=== PATIENT | male | born 1960 | race Two or more races ===

== ENCOUNTER 2019-06-01 13:13 | Inpatient (IN) | payer SELFPAY ==
[2019-06-01] MEDS ORDERED: Ketorolac Tromethamine 30 MG/ML VIAL ONE (13:49)
[2019-06-01 14:14] LABS: #Eosinphils 0.1 thou/uL (0.0-0.7); #Lymphocytes 1.3 thou/uL (1.20-3.40); #Monocytes 0.4 thou/uL (0.11-0.59); #Neutrophils 6.3 thou/uL (1.40-6.50); %Basophils 0.2 % (0.0-1.0); %Eosinophils 1.3 % (0.0-10.0); %Lymphocytes 15.7 % (21.0-51.0); %Monocytes 5.4 % (0.0-10.0); %Neutrophils 77.5 % (42.0-75.0); Mean Corpuscular HGB CONC 33.6 g/dL (32.0-36.0); Mean Corpuscular Hemoglobin 33.3 pg (27.0-31.0); Mean Corpuscular Volume 99.3 fL (78.0-98.0); Mean Platelet Volume 6.6 fL (7.4-10.4); Platelet Count 342 thou/uL (130-400); RBC Distribution Width 12.8 % (11.5-14.5); White Blood Cell (WBC) Count 8.1 thou/uL (4.8-10.8)
[2019-06-01 14:33] LABS: ALT (SGPT) 11 U/L (8-55); AST (SGOT) 17 U/L (5-34); Albumin 4.5 g/dL (3.5-5.0); Alkaline Phosphatase 92 U/L (40-150); Anion Gap 14 mmol/L (10-20); BUN (Urea Nitrogen) 11 mg/dL (8.4-25.7); Bilirubin, Total 0.5 mg/dL (0.2-1.2); Calc. Creatinine Clearance 0 mL/min (70-130); Calcium 9.9 mg/dL (7.8-10.44); Carbon Dioxide 23 mmol/L (22-29); Chloride 102 mmol/L (98-107); Estimated GFR-MDRD Greater than 90; Globulin 2.7 g/dL (2.4-3.5); Glucose 77 mg/dL (70-105); Potassium 4.1 mmol/L (3.5-5.1); Protein, Total 7.2 g/dL (6.0-8.3); Sodium 135 mmol/L (136-145)
[2019-06-01] MEDS ORDERED: Heparin 1,000 UNITS/ML VIAL ONE (15:00)
[2019-06-01] MEDS ORDERED: Tobramycin Sulfate 1.2 GM VIAL ONE (15:25)
[2019-06-01] MEDS ORDERED: Fentanyl 100 MCG/2 ML VIAL ONE ×3 (16:21→19:23)
[2019-06-01] MEDS ORDERED: Midazolam HCl 2 mg/2 ml Vial ONE (16:21)
[2019-06-01] MEDS ORDERED: Rocuronium Bromide 10 MG/ML (10ML VIAL) ONE (16:48)
[2019-06-01] MEDS ORDERED: Ondansetron PF 4 MG/2 ML Vial ONE (16:48)
[2019-06-01] MEDS ORDERED: Glycopyrrolate 0.2 MG/ML 5 ML SYRINGE ONE (16:48)
[2019-06-01] MEDS ORDERED: PHENYLEPHRINE-NS 100 MCG/ML 10 ML SYRINGE ONE (16:48)
[2019-06-01] MEDS ORDERED: PROPOFOL 200 MG/20 ML VIAL ONE (16:48)
[2019-06-01] MEDS ORDERED: Lidocaine 1% PF 5 ML VIAL ONE (16:48)
[2019-06-01] MEDS ORDERED: Dexamethasone 20 MG/5 ML VIAL ONE (16:48)
[2019-06-01] MEDS ORDERED: HYDROmorphone 2 MG/ML VIAL SLOW IVP PRN (18:42)
[2019-06-01] MEDS ORDERED: Promethazine HCl 25 MG/ML VIAL SLOW IVP PRN (18:42)
[2019-06-01] MEDS ORDERED: Meperidine HCl/PF 25 MG/ML VIAL SLOW IVP PRN (18:42)
[2019-06-01] MEDS ORDERED: Promethazine HCl 25 MG/ML VIAL IM PRN (18:42)
[2019-06-01] MEDS ORDERED: Bisacodyl 10 MG SUPP PR PRN (19:38)
[2019-06-01] MEDS ORDERED: traMADol HCl 50 MG TAB PO PRN ×2 (19:38)
[2019-06-01] MEDS ORDERED: Fentanyl 100 MCG/2 ML VIAL SLOW IVP PRN (19:38)
[2019-06-01] MEDS ORDERED: Acetaminophen 325 MG TAB PO PRN (19:38)
[2019-06-01] MEDS ORDERED: Morphine 2 MG/ML SYRINGE IVP PRN (19:38)
[2019-06-01] MEDS ORDERED: Morphine 4 MG/ML VIAL SLOW IVP PRN (19:38)
[2019-06-01] MEDS ORDERED: Milk Of Magnesia 30 ML UDCUP PO PRN (19:38)
[2019-06-01] MEDS ORDERED: Ondansetron PF 4 MG/2 ML Vial IV PRN (19:38)
[2019-06-01] MEDS: Sodium Chloride 0.9% 100 ML IV SCH (20:05)
[2019-06-01] MEDS: HYDROcodone/Acetaminophen 5/325 mg Tablet PO PRN (21:18)
[2019-06-01] MEDS: Ketorolac Tromethamine 30 MG/ML VIAL IVP SCH (21:21)
[2019-06-01 21:27] VITALS: BMI 20.5
[2019-06-01] MEDS ORDERED: TETANUS AND DIPHTHERIA TOX/PF 0.5 ML DISP.SYRIN IM SCH (22:00)
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
[2019-06-02] MEDS: HYDROcodone/Acetaminophen 5/325 mg Tablet PO PRN ×4 (01:32→21:50)
[2019-06-02] MEDS: Ketorolac Tromethamine 30 MG/ML VIAL IVP SCH (01:34)
[2019-06-02] MEDS: Vancomycin HCl 1 GM in Premix Bag 1 BAG IVPB SCH ×2 (06:23→17:49)
[2019-06-02 06:46] LABS: #Lymphocytes 1.2 thou/uL (1.20-3.40); #Monocytes 0.4 thou/uL (0.11-0.59); #Neutrophils 5.7 thou/uL (1.40-6.50); %Basophils 0.1 % (0.0-1.0); %Eosinophils 0.4 % (0.0-10.0); %Lymphocytes 15.7 % (21.0-51.0); %Monocytes 5.7 % (0.0-10.0); %Neutrophils 78.1 % (42.0-75.0); Hemoglobin 12.4 g/dL (14.0-18.0); Mean Corpuscular HGB CONC 33.7 g/dL (32.0-36.0); Mean Corpuscular Hemoglobin 33.5 pg (27.0-31.0); Mean Corpuscular Volume 99.4 fL (78.0-98.0); Platelet Count 321 thou/uL (130-400); RBC Distribution Width 12.8 % (11.5-14.5); Red Blood Cell (RBC) Count 3.71 mill/uL (4.70-6.10); White Blood Cell (WBC) Count 7.4 thou/uL (4.8-10.8)
--- NOTE | 2019-06-02 11:44 | SPC ---
Ultrasound and Fluoroscopic guided left upper extremity single lumenPICC placement: 01/27/2019 HISTORY: Need for central vascular access. FINDINGS: Informed consent obtained prior to the procedure. Left antecubital fossa prepped and draped in normal sterile fashion. Skin overlying thebrachial vein anesthetized with 1% buffered lidocaine. With direct sonographic guid ance, vascular access is obtained via the brachial vein and an 0.018in wire was advanced to the cavoatrial junction. Intravascular length is calculated at 45 cm and of the PICC is cut accordingly. Needle is removed and replaced with a peel-away sheath. The PICC was advanced over the wire. Wire and peel-away sheath were removed. The tip of the catheter overlies the cavoatrial junction. The port flushes well and the catheter is ready for use. Exposure data: 0 minutes of fluoroscopic time 36 mGy per centimeter squared IMPRESSION: Successful ultrasound guided placement of a left upper extremity PICC.
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
[2019-06-02] MEDS: Docusate 100 MG CAP PO SCH (16:23)
[2019-06-02] MEDS: cefTRIAXone\\ROCEPHIN 2 GM in Sodium Chloride 0.9% 100 ML IVPB SCH (20:07)
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
[2019-06-03] MEDS: HYDROcodone/Acetaminophen 5/325 mg Tablet PO PRN ×3 (04:53→19:18)
[2019-06-03 05:16] LABS: Vancomycin, Trough 8.2 ug/mL
[2019-06-03] MEDS: Vancomycin HCl 1 GM in Premix Bag 1 BAG IVPB SCH ×3 (05:51→22:08)
--- NOTE | 2019-06-03 12:17 | CON ---
DATE OF CONSULTATION: 06/03/2019 HISTORY OF PRESENT ILLNESS: Mr. Wilhelm is a 59-year-old male, status post I and D of his right shoulder. The patient is currently resting comfortably in bed. The pain is clinically improved. He is otherwise without acute complaints. The dressing has been changed without any significant drainage. PHYSICAL EXAMINATION: VITAL SIGNS: Temperature 98.1, heart rate 80, respirations 18, O2 saturation 100%, blood pressure 133/87. GENERAL: Alert and oriented male, in no acute distress. EXTREMITIES: Right upper extremity is neurovascularly intact distally. He has clean dressing intact. LABORATORY DATA: Microbiology shows no positive cultures from soft tissue or swabs. IMPRESSION: Status post right shoulder open reduction internal fixation with postoperative infection. ASSESSMENT AND PLAN: I feel that the patient probably has Propionibacterium acnes based on the fluid collection versus a non-virulent organism. I would like him to have a period of IV antibiotics followed by oral suppression along the bone to heal. We can take the hardware out in the future once the patient's bone is healed. He will continue IVs under direction of Dr. Ramachandran. We will keep in-house until cultures are rather negative. Dr. Ramachandran feels that he can best benefit from outpatient IV antibiotics. Job ID: [id number]
[2019-06-03] MEDS: Docusate 100 MG CAP PO SCH (12:52)
[2019-06-03] MEDS: cefTRIAXone\\ROCEPHIN 2 GM in Sodium Chloride 0.9% 100 ML IVPB SCH (19:52)
[2019-06-04] MEDS: HYDROcodone/Acetaminophen 5/325 mg Tablet PO PRN (04:59)
[2019-06-04 06:01] LABS: Vancomycin, Trough 17.5 ug/mL
[2019-06-04] MEDS: Vancomycin HCl 1 GM in Premix Bag 1 BAG IVPB SCH ×3 (06:23→22:03)
[2019-06-04] MEDS: Docusate 100 MG CAP PO SCH (10:43)
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
[2019-06-04] MEDS: cefTRIAXone\\ROCEPHIN 2 GM in Sodium Chloride 0.9% 100 ML IVPB SCH (20:23)
[2019-06-05] MEDS: Vancomycin HCl 1 GM in Premix Bag 1 BAG IVPB SCH ×2 (05:34→14:03)
[2019-06-05] MEDS: Docusate 100 MG CAP PO SCH (08:56)
[2019-06-05 08:57] VITALS: BP 122/87; TEMP 98.5
[2019-06-05] MEDS: Ketorolac Tromethamine 30 MG/ML VIAL IVP SCH ×2 (09:05→09:06)
[2019-06-05] MEDS: Sodium Chloride 0.9% 100 ML IV SCH ×5 (09:06→09:13)
[2019-06-06 07:14] LABS: Fungus Stain Final report (.)
[2019-06-06 07:14] LABS: Fungus Stain Final report (.)
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
== END 2019-06-05 16:20 | disposition home or self-care (01) | DRG 560 ==
LOC: ERS 13:13 → SDC/OP 19:00 → ONC 19:49
PROVIDERS: ADMIT Orthopaedic Surgery; ATTEND Orthopaedic Surgery
PROC: 0H9BXZZ Drainage of Right Upper Arm Skin, External Approach (ICD-10-PCS; 2019-06-01)
PROC: 02HV33Z Insertion of Infusion Device into Superior Vena Cava, Percutaneous Approach (ICD-10-PCS; principal; 2019-06-02)
PROC: B548ZZA Ultrasonography of Superior Vena Cava, Guidance (ICD-10-PCS; 2019-06-02)
PROC: B5181ZA Fluoroscopy of Superior Vena Cava using Low Osmolar Contrast, Guidance (ICD-10-PCS; 2019-06-02)
DX: T84.610A Infection and inflammatory reaction due to internal fixation device of right humerus, initial encounter (principal); M86.8X2 Other osteomyelitis, upper arm; F17.210 Nicotine dependence, cigarettes, uncomplicated; C62.90 Malignant neoplasm of unspecified testis, unspecified whether descended or undescended; Y83.8 Other surgical procedures as the cause of abnormal reaction of the patient, or of later complication, without mention of misadventure at the time of the procedure; V89.2XXA Person injured in unspecified motor-vehicle accident, traffic, initial encounter; Y93.89 Activity, other specified; Y92.89 Other specified places as the place of occurrence of the external cause; S82.142G Displaced bicondylar fracture of left tibia, subsequent encounter for closed fracture with delayed healing
CPT/HCPCS: 36415; 36569; 80053; 80202; 83605; 85025; 85652; 86140; 87070; 87076; 87102; 87205; 87206; 96361; 96374; C1751; J0696; J1100; J1644; J1885; J2001; J2250; J2405; J2704; J3010; J3260; J3370; J3490